=== PATIENT | female | born 1990 | race Caucasian/White ===

== ENCOUNTER → 2021-05-13 | Outpatient (CLI) | payer OTHER ==
[~2021-05-13] MED LIST: GABA600T7 PO; GADOTERATE 7.5 MMOL/15ML VIAL. IVP ONE
--- NOTE | 2021-05-13 14:46 | KCIC ---
EXAM: Brain MRI with and without contrast. HISTORY: Hyperprolactinemia. TECHNIQUE: Multiplanar, multisequence magnetic resonance imaging of the brain was performed prior to and following the administration of intravenous contrast. COMPARISON: None. FINDINGS: There is no restricted diffusion to suggest acute or subacute infarction. There is no susce ptibility effect to suggest hemorrhage. There is no mass effect or midline shift. There is no hydroce phalus. There are a few tiny foci of signal change within the cerebral white matter. The orbits, paranasal sinuses mastoid air cells are unremarkable. There are normal flow voids within the cerebral vessels. There is no suspicious calvarial lesion. The pituitary and sella are normal in size. There is slight physiologic leftward deviation of the inf undibulum. The optic chiasm is normal in position. There is slight relative decreased enhancement wit hin the right aspect of the pituitary gland which is likely physiologic. No convincing pituitary sarah sapna is seen. No suspicious enhancing lesion is seen. IMPRESSION: 1. No acute intracranial finding. 2. No convincing pituitary adenoma. There is slight heterogeneous enhancement of the pituitary parenc hyma which is likely physiologic. No discrete lesion is seen in the pituitary is normal in size. 3. Few tiny foci of signal change within the cerebral white matter. This can be seen with chronic sma ll vessel disease and chronic migraine headaches. The imaging appearance does not favor demyelinating disease. Electronically signed by: Geneva Kirkpatrick MD (05/13/2021 2:43 PM) [id number]
== END ==
LOC: KCIC MRI 12:21
PROVIDERS: ATTEND Family Medicine
DX: E22.1 Hyperprolactinemia (principal)
CPT/HCPCS: 70553; A9575